=== PATIENT | female | born 1960 | race Hispanic/Latino ===

== ENCOUNTER 2017-02-08 13:22 | Emergency (ER) | payer SELFPAY ==
[~2017-02-08] VITALS: Ht 160 cm; Wt 70.3 kg
[2017-02-08 13:25] VITALS: BP 152/82; PULSE 99; RESP 16; O2SAT 98
[2017-02-08 14:52] LABS: APPEARANCE,URINE CLOUDY (CLEAR,HAZY); COLOR,URINE YELLOW (YELLOW)
[2017-02-08 14:53] LABS: OCCULT BLOOD,URINE SMALL (NEGATIVE); UROBILINOGEN,URINE NORMAL (NORMAL)
--- NOTE | 2017-02-08 15:30 | ED.REPORT ---
HPI-Abd Pain F 40 and Over Date of Service Feb 08, 2017 ED Provider: Husam Pike Patient is a 56 year old female with a hx of DM and HTN who presents to the ED complaining of dysuria. Associated symptoms include L flank pain onset 3 days ago, vomiting, cough, nausea, and chills. She denies fever, abdominal pain, hematuria, or any other symptoms. She is currently taking Cipro (2 days ago) for a UTI. She took her Cipro this morning. She takes Metformin (2x a day) and Lantus (45 units every night) to manage her diabetes. Nursing Notes Stated Complaint: PAIN WHEN URINATING AND IN LOWER BACK Chief Complaint: Female Abdominal Pain Nursing Notes Reviewed: Yes Allergies: Coded Allergies: No Known Allergies (Unverified , 02/08/17) Scheduled Cephalexin (Cephalexin) 500 Mg Capsule 500 MG PO QID Scheduled PRN Hydrocodone-Acetaminophen 5-325 mg (Hydrocodone-Acetaminophen 5-325 mg) 1 Each Tablet 1 TABLET PO Q4H PRN PRN For Pain General Time Seen by MD: 15:29 Chief Complaint Flank pain left Hx Obtained From: Patient Arrived By: Walk-in Sudden in Onset?: Yes Onset Occurred: 3 days ago Symptom Duration: Since onset Recent Healthcare: Recent doctor visit Risk Factors )( AAA Risk Stratification Hypertension Risk factors reviewed Past Medical History Past Medical History Reports: Diabetes mellitus, Hypertension Past Surgical History Unknown Smoking History Unknown if Ever Smoker Ambulatory Status Independent Review of Systems Constitutional: Reports: Chills, Denies: Fever Respiratory: Reports: Non-productive cough GI: Reports: Nausea, Vomiting, Denies: Abdominal pain Female: Reports: Dysuria, Flank pain (L), Denies: Hematuria Complete sys rev & neg: except as marked. Physical Exam Vital Signs Vital Signs (First) Date Time Temp Pulse Resp B/P Pulse Ox O2 Delivery O2 Flow Rate FiO2 02/08/17 13:25 36.7 99 16 152/82 98 Room Air Initial VS: Reviewed, Vital signs normal Head / Eyes: Atraumatic, Normocephalic Skin: Warm, Dry Neurologic: Alert, Oriented, Nonfocal Psychiatric: Mood/affect normal, Behavior normal, Normal thought content General/Constitutional: Awake, Alert, Well developed Respiratory / Chest: Breath sounds NL, Breath sounds = bilat, No respiratory distress Cardiovascular: Regular rhythm, Heart sounds NL, No gallop, No murmurs, No rubs Abdomen: Soft, BS normoactive Flank / Spine / Paraspinal: Positive: Flank tender L ENT: Mucous membranes moist Neck: Supple Interpretation & Diagnostics Lab Results Interpretation Result Diagram: 02/08/17 1600 02/08/17 1600 Test 02/08/17 14:15 02/08/17 16:00 Urine Color Yellow (YELLOW) Urine Appearance Cloudy (CLEAR,HAZY) Urine pH 6.0 (5.0-8.0) Urine Specific [place] 1.015 (1.003-1.035) Urine Protein Negativemg/dL (NEG,TRACE) Urine Glucose (UA) 1000mg/dL (NEGATIVE) Urine Ketones Tracemg/dL (NEGATIVE) Urine Occult Blood Small (NEGATIVE) Urine Nitrite Negative (NEGATIVE) Urine Bilirubin Negative (NEGATIVE) Urine Urobilinogen Normalmg/dL (NORMAL) Urine Leukocyte Esterase Small (NEGATIVE) Urine RBC 3-10/hpf (0-2) Urine WBC Packed/hpf (0-5) Urine Epithelial Cells Few/hpf (NONE-MOD) Urine Crystals None seen (NONE SEEN) Urine Bacteria Few/hpf (NONE-FEW) Urine Hyaline Casts None/lpf (NONE) Urine Granular Casts None seen (NONE SEEN) Urine Waxy Casts None seen (NONE SEEN) Urine Red Blood Cell Casts None seen (NONE SEEN) Urine White Blood Cell Casts None seen (NONE SEEN) Urine Mucus None seen (None Seen) Urine Trichomonas None seen (NONE SEEN) Urine Yeast None (NONE SEEN) Urinalysis Comment None Urine Culture Reflexed Indicated Hold Urine Received (Received) White Blood Count 5.8th/mm3 (3.8-10.1) Red Blood Count 4.24mil/mm3 (3.90-5.20) Hemoglobin 13.1g/dL (12.0-15.6) Hematocrit 38.8% (35.0-46.0) Mean Corpuscular Volume 91.5fL (81-100) Mean Corpuscular Hemoglobin 30.9pg (27.0-35.0) Mean Corpuscular Hemoglobin Concent 33.8% (32.0-37.0) Red Cell Distribution Width 12.5% (12.3-15.4) Platelet Count 223bil/L (150-400) Neutrophils (%) (Auto) 58.3% (40-74) Lymphocytes (%) (Auto) 30.4% (14-46) Monocytes (%) (Auto) 9.7% (4-12) Eosinophils (%) (Auto) 1.2% (0-5) Basophils (%) (Auto) 0.2% (0-3) Sodium Level 133mEq/L (134-144) Potassium Level 5.2mEq/L (3.5-5.2) Chloride Level 94mEq/L (97-108) Carbon Dioxide Level 25mmol/L (18-29) Blood Urea Nitrogen 20mg/dL (6-24) Creatinine 0.57mg/dL (0.57-1.00) Estimat Glomerular Filtration Rate 157mL/min (>59) Glucose Level 495mg/dL (60-99) Lactic Acid Level 1.6mmol/L (0.4-2.0) Calcium Level 9.6mg/dL (8.5-10.1) Total Bilirubin 0.5mg/dL (0.0-1.2) Aspartate Amino Transf (AST/SGOT) 16U/L (0-50) Alanine Aminotransferase (ALT/SGPT) 14U/L (0-32) Alkaline Phosphatase 73U/L (25-150) Total Protein 7.6g/dL (6.4-8.4) Albumin 4.2g/dL (3.4-5.0) Re-Eval/Medical Decision Med Decision/Clinical Course 56-year-old diabetic with a pyelonephritis not responding to Cipro. She appears nontoxic and a normal lactate and no leukocytosis and no fever. No reason I am aware of that she cannot take by mouth's. Given Rocephin 2 g IV here in the emergency department and we will start her on Keflex as an outpatient. Urine cultures are pending. She was given a 500 mL saline bolus and is to follow-up with her primary care service if blood sugars are not improving by tomorrow. Re-Evaluation/Progress : Time of Eval: 16:59 )( Re-Eval Abdomen: Soft Re-Evaluation/Progress Note: Pt is feeling much better. Family has now joined pt in room. Discussed plan for discharge. Patient understands and agrees with plan. All questions addressed at this time. Counseled Regarding: Diagnosis, Lab results, Need for follow-up, When/why to return to ED Discharge & Departure Primary Impression: Pyelonephritis Disposition: Home Discharge Condition All VS Reviewed: Yes Condition: Improved Patient Instructions: Acute Pyelonephritis (ED) Additional Instructions: Thank you for entrusting us with your care. Monitor your blood sugar. If it is above 300 tomorrow, call your doctor. Follow up with your doctor no later than early next week. Take Keflex 4x a day for 10 days starting tomorrow evening. Stop taking the Cipro. Take Hydrocodone as needed for pain. Take a stool softener to avoid constipation. Return to the emergency department if you experience increasing back pain, vomiting, high fever, or any other new or worsening symptoms. Referrals: Monica Hernandez MD (PCP) [facility] Scribe Attestation Portions of this note were transcribed by Henri Morillo. I, Dr. Pike personally performed the history, physical exam and medical decision-making; I reviewed and confirmed the accuracy of the information in the transcribed note. Signed by: Henri Morillo 02/08/2017, 0130 copies to: [facility]; Monica Hernandez MD, Donald L MD Feb 08, 2017 15:30 HENRI MORILLO Feb 08, 2017 15:38
[2017-02-08] MEDS ORDERED: cefTRIAXone Inj 2,000 MG in Dextrose 5% Minibag Plus 50 ML IV ONE (15:50)
[2017-02-08] MEDS ORDERED: Ondansetron 2 mg/mL 2 mL Inj IV PRN (15:50)
[2017-02-08] MEDS ORDERED: oxyCODONE-Acetamin 5-325 mg Tablet PO ONE (15:50)
[2017-02-08 16:17] LABS: BASOPHILS % (AUTO) 0.2 % (0-3); EOSINOPHILS % (AUTO) 1.2 % (0-5); MONOCYTES % (AUTO) 9.7 % (4-12); Mean Corpuscular Hemoglobin 30.9 pg (27.0-35.0); Mean Corpuscular Volume 91.5 fL (81-100); NEUTROPHILS % (AUTO) 58.3 % (40-74); Platelet Count 223 bil/L (150-400)
[2017-02-08] MEDS ORDERED: CEPH500C PO (17:08)
[2017-02-08] MEDS ORDERED: HYDR-4003 PO (17:08)
[2017-02-08 17:34] VITALS: BP 115/71; PULSE 106; RESP 16; O2SAT 98
== END 2017-02-08 17:35 | disposition home or self-care (01) ==
LOC: SED 13:22
DX: N10 Acute pyelonephritis (principal); E11.9 Type 2 diabetes mellitus without complications; I10 Essential (primary) hypertension
CPT/HCPCS: 36415; 80053; 81000; 83605; 85025; 87086; 87088; 96361; 96365; 96375; 99284; J0696; J2405